=== PATIENT | male | born 1960 | race Caucasian/White ===

== ENCOUNTER 2016-12-12 18:43 | Inpatient (IN) | payer MEDICAID, OTHER ==
[~2016-12-12] VITALS: Ht 167.6 cm; Wt 81.8 kg
[2016-12-13] MEDS ORDERED: Benzocaine-Menthol Lozenge 2/Pkg PO PRN (01:10)
[2016-12-13] MEDS ORDERED: Alum-Mag Hydrox-Simeth 30 mL Suspension PO PRN (01:10)
[2016-12-13] MEDS ORDERED: Magnesium Hydroxide 10 mL Oral Concentration PO PRN (01:10)
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
[2016-12-13] MEDS: LORazepam 2 mg Tablet PO PRN ×2 (11:49→20:09)
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
--- NOTE | 2016-12-13 17:48 | NUR ---
Obs Dayshift Pt spent the morning in bed, got up jut before lunch stating that we better give him a cigarette or he will find a way out of here to get one. Pt declined multiple offers of a patch. Pt was very malodorous, with some strong encouragement by staff he did take a shower, change clothing and went back to bed until dinner. Verbally aggressive, irritable, detests that he is in a "treatment facility". Pt is not able to participate on the unit at this time. Poor ADL's, Good meals
--- NOTE | 2016-12-13 19:05 | NUR ---
Nursing Dayshift: S: "Oh, that's for my thoughts? Okay." O: Patient agreeable to take Ativan 2 mg PO and Zyprexa 10 mg PO during lunch time for increased agitation. Effective relief noted within a half an hour. Patient has been out of his room for meals and snacks. Gruff with staff for the most part. Complementary when receiving requested snacks. Challenging when not getting his way as when staff do not give him focus soon enough. A: Gruff. Some anger. P: CPOC. Monitor mood and behavior.
--- NOTE | 2016-12-14 01:29 | NUR ---
Observations 1900 to 0700 Pt ate a snack. Pt has a blunt, hostile affect. Pt threatens staff when denied demand of cigarette. Pt paces unit. Pt does not interact with peers. Pt appeared asleep from 2330- 0045 and is currently quiet in bed. Pt respirations were observed when asleep. Staff completed 15 min close observations as ordered.
--- NOTE | 2016-12-14 05:46 | NUR ---
Nursing Noc "I need a smoke right now!, you can't hold me here!, I'm getting out of here right now." Pt presents very internally preoccupied, noted to be almost constantly talking to himself and pacing from room to common area. Pt verbally aggressive with staff and noted to stop and stare at auto service writer at times. Difficult to redirect. Taking medications with hesitance. Broken sleep this shift. Continuing to monitor mood, behavior and emotional state. q15 minute safety checks throughout the shift. BHCP. Pt refusing Nicotine replacement options available.
[2016-12-14] MEDS: LORazepam 2 mg Tablet PO PRN ×2 (07:34→15:03)
--- NOTE | 2016-12-14 09:14 | NUR ---
PT AGREED TO TAKE A.M. MEDICATIONS Pt. approached this life insurance underwriter and stated: "I want all my medications but no nicotine, no nicotine!" pt. given his scheduled Olanzapine 10 mg and PRN Ativan 2 mg for anxiety.
[2016-12-14 09:56] VITALS: BP 153/106; PULSE 105; RESP 18
--- NOTE | 2016-12-14 13:36 | PROG NOTE ---
[address] [address] PROGRESS NOTE PATIENT: VERNA PEREZ : 1960 MR#: [id number] ADMIT: 12/13/2016 JOB ID: [id number] DATE: 12/14/2016 CHIEF COMPLAINT: "When can I leave?" This per patient report. HISTORY OF PRESENT ILLNESS: As stated above, the patient was briefly able to meet with myself. He made intermittent eye contact, which was improved. He reportedly remains medication compliant but openly states that he just wants to be let go from the hospital. In court proceeding this morning the patient did meet criteria for continued stay and has been informed of the court order process. OBJECTIVE: On mental status exam the patient met with myself briefly, made intermittent eye contact. He was unable to discern any previous history, unwilling to process any previous interventions provided, but remains medication compliant. His speech is pressured. His mood is less dysphoric. His affect is incongruent. His thought process shows continuation of flight of ideas, loose and disorganized speech, evidence of word salad. His thought content: He denied any evidence of current suicidal, homicidal ideation. He remains posturing, some agitation and aggression, paranoia. He responds to internal stimulus throughout the course of conversation. Insight and judgment are deemed poor. PHYSICAL EXAMINATION: Vital signs of current: Temperature is 36.4, pulse 105, respirations 18, BP 153/106. MEDICATION REVIEW: Includes Zyprexa 10 mg b.i.d. and p.r.n. doses of Vistaril, Zyprexa, and Ativan, as well as trazodone. ASSESSMENT: [place] I: Schizophrenia, paranoid type. [place] II: Deferred. [place] III: None. [place] IV: Stressors are noted for chronic mental health issues, noncompliance. [place] V: Global Assessment of Functioning of current 25. PLAN: 1. Recommendations for titration of Zyprexa to 15 mg b.i.d. 2. Recommendations for continuation of attempts of gathering information from previous [facility] for previous hospitalizations.
[2016-12-14] MEDS ORDERED: Benztropine 1 mg/mL 2 mL Inj IM PRN (14:15)
[2016-12-14] MEDS ORDERED: Haloperidol 5 mg/mL Inj IM PRN (14:25)
--- NOTE | 2016-12-14 15:10 | NUR ---
NURSING NOTE [id number] Mood: "I'm not staying here" Affect: paranoid, irritable at times Behavior: initially refused a.m. meds but half hour later approached this tag writer requesting to take them. Pt. difficult to understand at times as he mostly mutters and rambles, but able to express his needs to staff. Pt quite fixated on wanting discharge. Pt. visible off and on in common area, not interacting w/peers. Thought processes: disorganized, FOI, responding to internal stimuli, not able to answer when asked about AH/VH.
--- NOTE | 2016-12-14 18:15 | NUR ---
Electrolytic Etcher/Counselor: S: "I asked for help and they brought me here." O: Patient slept 6 hours last night per staff. Patient denies S/I and H/I. He also denies auditory and visual hallucinations. Depression and anxiety was not rated. A: Patient is cooperative, disorganized, word salad, paranoid, agitated, responding to internal stimuli, no insight, no judgment. P: Follow the care plan, coordinate with out-patient providers.
--- NOTE | 2016-12-14 18:27 | NUR ---
[facility] Day Shift Pt maintained behavioral control throughout the shift. Pt affect appears mostly flat, briefly tearful in the AM, occasionally irritable. Pt spends most of the shift resting in his room, sitting quietly in his room, and inquiring about his belongings. Pt is occasionally difficult to comprehend during conversations (pt mumbles/slurs frequently). Pt is not social with staff or peers when active on the unit. Pt declined to participate in unit activities. Pt attended all meals and ate approx 100% of all meals.
--- NOTE | 2016-12-14 21:24 | NUR ---
nursing note 3-11pm O)hard to understand mumbles with word salad statements, pleasant took medications without problems, ate meals, isolates in room, dressed in own clothes A) cooperative, takes medications, responds to internal stimuli P) monitor behavior and effectiveness of medications
--- NOTE | 2016-12-15 04:35 | NUR ---
nursing, nights, 11-7 s- can i have something to drink ? no i don't want ativan. i'll take the vistaril. can i have some socks ? o- has appeared to sleep after 2214. up at 0225 and received 50 mg of vistaril. alternates between his room and the dinning room, is currently resting in bed. assessed q 15 minutes. a- inadequate sleep, responding to internal stimuli, no apparent physical distress. p- monitor behavior/emotional state, quality, times and amount of sleep, use and effect of medication. refugio
[2016-12-15] MEDS: LORazepam 2 mg Tablet PO PRN (12:47)
--- NOTE | 2016-12-15 12:48 | NUR ---
PRN medication Pt responding to AVH. He requested and received medication, Haldol 10mg po prn & Ativan 2mg po prn.
--- NOTE | 2016-12-15 14:15 | PROG NOTE ---
[address] [address] PROGRESS NOTE PATIENT: VERNA PEREZ : 1960 MR#: [id number] ADMIT: 12/13/2016 JOB ID: [id number] DATE: 12/15/2016 CHIEF COMPLAINT: "I just want to get out of here." This per patient report. HISTORY OF PRESENT ILLNESS: As stated above, the patient met briefly with myself on the Day Area. He continues to be quite paranoid, delusional, identifying that there are individuals out there that are not making it easy for him to be safe. He showed significant visual tracking throughout and showed some agitation responses with posturing. His speech was pressured. His mood is dysphoric. Affect is irritable. His thought process shows evidence of loose and disorganized thinking. His thought content, he denied any evidence of suicidal or homicidal ideation. He continues to be quite paranoid, delusional. He was alert. Orientation was off in all quadrants. Insight and judgment are poor. PHYSICAL EXAMINATION: All vital signs of current. Temperature is 36.4, pulse 105, respirations 18, BP 153/106. MEDICATION REVIEW: Includes: 1. Zyprexa 15 mg b.i.d. 2. P.r.n. doses of Haldol 10 mg q.4 hours p.r.n., p.o. or IM. 3. Cogentin 1 mg b.i.d. p.o. or IM or EPS. 4. Hydroxyzine 50 mg q.4 hours. 5. Ativan 2 mg q.4 hours p.o. or IM. 6. Trazodone 100 mg q.h.s. ASSESSMENT: AXIS I 1. Psychotic disorder, not otherwise specified. 2. Schizophrenia, paranoid type. 3. Polysubstance use disorder with noted previous usage of methamphetamine and positive UA for THC. AXIS II Antisocial personality disorder. AXIS III None. AXIS IV Stressors are noted for chronic disturbance of mental health, polysubstance use. AXIS V Global assessment of functioning of current 30. PLANS: 1. Recommendations for continuation of all medications noted. 2. Recommendations for continuation of MR 14. 3. Records are currently trying to be obtained through various treatment sectors of prior. [facility]
--- NOTE | 2016-12-15 15:19 | NUR ---
Nursing Days Pt internally preoccupied and actively responding to AVH. He has been visible on the unit. Taking medication as scheduled. Maintained behavioral control.
[2016-12-15 18:54] VITALS: BP 199/87; PULSE 109; RESP 18
--- NOTE | 2016-12-15 19:02 | NUR ---
Student Finance Specialist/Counselor: S: "Whatever you suggest, I will take." O: Patient slept 4.5 hours last night per staff. Patient denies S/I and H/I. He also denies auditory and visual hallucinations. Depression and anxiety was not rated. A: Patient is cooperative, disorganized, word salad, paranoid, responding to internal stimuli, no insight, no judgment. P: Follow the care plan, coordinate with out-patient providers.
--- NOTE | 2016-12-15 21:19 | NUR ---
Evening Nurse Note: Pt has been in the milieu, keeping a low tone of voice and making requests appropriately. Pt dozes off at the table for a short time then went to his room after dinner. Pt came back out to the dayroom for evening snack and was appropriately conversing with staff about his HS meds. Pt thanked staff and went back to bed after medication administration. Pt still responding to internal stimuli. Pt monitored q15 min for safety, location and accountability.
--- NOTE | 2016-12-15 21:20 | NUR ---
Observations 0900 - 0 Pt affect and mood isolative, guarded and withdrawn. Pt was in and out of his room most of the shift. Pt wandered in hallway, sat in [place] and rested in bed during free time. Pt maintained behavior throughout the shift. Pt attended meals in D.R. has a good appetite and ate 100% of his meals. Pt ate snack. Pt was pleasant, polite and cooperative when approached. Pt speech was pressured and rambling. Pt eye contact was ok. Pt was observed every 15 minutes through the shift as ordered.
--- NOTE | 2016-12-16 05:30 | NUR ---
nursing, nights, 11-7 s/o- has appeared to sleep after 5 during q 15 minute assessments. a- improved sleep, no apparent distress. p- monitor behavior/emotional state, quality, times and amount of sleep, use and effect of medication. refugio
[2016-12-16] MEDS: LORazepam 2 mg Tablet PO PRN ×3 (09:19→19:05)
--- NOTE | 2016-12-16 11:39 | NUR ---
NURSING NOTE [id number] Mood: "very, very agitated" Affect: distracted, rambling, irritable at times Behavior: pt. visible in DR, sitting by himself and muttering to himself off and on. Pt. appears disheveled, encouraged pt. to take shower but he declined and said he may take one later today. Thought processes: pt. endorsed anxiety and agitation and requested medication-- was given Ativan 2 mg @ 09:20. Pt. denies all psychiatric issues but does appear to be responding to internal stimulation. He is fixated on wanting discharge today, as well as getting an HIV and TB test done. Addendum: 12/16/16 at 1340 by VILLA LARES RN Pt. requested a copy of his legal paperwork and when he read over it he became agitated and ripped the paper up and threw it in the trash can; stated "I didn't do it, I don't have any felonies, you can't keep me here!" Pt. tearful. Pt. agreeable to take PRN Ativan 2 mg and Haldol 10 mg at that time (13:07). Pt. calmed down w/reassurance and medications.
--- NOTE | 2016-12-16 13:27 | PROG NOTE ---
[address] [address] PROGRESS NOTE PATIENT: VERNA PEREZ : 1960 MR#: [id number] ADMIT: 12/13/2016 JOB ID: [id number] DATE: 12/16/2016 CHIEF COMPLAINT: "I was at [facility] for over six months." This is per patient report. HISTORY OF PRESENT ILLNESS: As stated above, the patient did clarify with myself and medical student that he had been previously hospitalized at the [facility] not [facility]. He otherwise was agitated, irritated by the questions, walked out of the interview process. He has been medication compliant with current dose administration of Zyprexa 15 mg b.i.d. and has been involved in and self-care with taking showers. He reportedly has been eating all meals and has shown no evidence of further aggression. He continues on his current medications without any essential complaints. OBJECTIVE/MENTAL STATUS EXAMINATION: As noted above. The patient did approach myself and the medical student. He initially was pleasant but became quickly irritated and frustrated. He indicated that he did not want to talk about it any more. He did release information about being at [facility] in the past. His mood is dysphoric. His affect is irritable and labile. His thought process showed no evidence of racing thoughts. He does appear to be loose and disorganized and confused throughout the course of conversation. He denied any evidence of suicidal or homicidal ideation. He is quite paranoid. He has evidence of active delusions with feelings of persecution, paranoia and is actively responding to internal stimulus. He was alert and disoriented to place, time, situation. His attention and concentration are poor. Insight and judgment are poor. PHYSICAL EXAMINATION: Vital signs are current. Temperature is 36.5, pulse 109, respirations 18, BP 199/87. MEDICATION REVIEW: Includes: 1. Zyprexa 15 mg b.i.d. 2. Haldol 10 mg q.4 h. p.r.n. for agitation; last dose yesterday at noon. 3. Cogentin 1 mg b.i.d. p.r.n. for EPS. 4. Vistaril 50 mg q.4 h. p.r.n. 5. Ativan 2 mg q.4 h. p.r.n. 6. Trazodone 100 mg q.h.s. ASSESSMENT: AXIS I: 1. Schizophrenia, paranoid type. 2. Polysubstance use disorder by history. AXIS II: Antisocial personality disorder. AXIS III: None. AXIS IV: Stressors are noted for chronic disturbance of mental health, polysubstance use. AXIS V: Global Assessment of Functioning, current, 30. PLAN: 1. Recommendations for obtaining information from [facility] in [place]. 2. Recommendations for continuation of MR 14. 3. Recommendations for further titration of Zyprexa to follow.
[2016-12-16 14:01] VITALS: BP 170/97; PULSE 101; RESP 16
--- NOTE | 2016-12-16 17:49 | NUR ---
[facility] Day Shift Pt maintained behavioral control throughout the shift. Pt affect appears mostly flat, briefly tearful in the AM, occasionally irritable. Pt spends most of the shift resting in his room, sitting quietly in his room, and inquiring about his belongings/discharge. Pt is occasionally difficult to comprehend during conversations (pt mumbles/slurs frequently). Pt is not social with staff or peers when active on the unit. Pt expresses frustration with his inability to leave the unit, but has not required physical intervention at this time. Pt declined to participate in unit activities. Pt attended all meals and ate approx 100% of all meals.
--- NOTE | 2016-12-16 19:06 | NUR ---
Nurses PRN Patient requested medications for agitation,received Ativan 2mg and Haldol 10mg after reporting other patients were plotting against him and that radiation was the colunga. Will assess response. Addendum: 12/16/16 at 2230 by ANTONIA LEE RN Nurses Note [place] Patient maintain behavioral control this shift with the assist of PRN Haldol 10mg and Ativan 2mg PO at 1905. Patient continued to fear other patients with bizarre paranoid thinking. He remains medication compliant without adverse effect. He c/o a "centipede" in his Left ear. Patient has an reddened raised papule on the opening of the ear canal with moderate redness inside the ear. Will maintain q 15min. checks for safety,redirection and support.
--- NOTE | 2016-12-16 19:49 | NUR ---
Chief Wellness Officer/Counselor: S/O: Patient denies S/I and H/I. He also denies auditory and visual hallucinations. Depression and anxiety were not rated. A: Patient is cooperative, disorganized, word salad, paranoid, responding to internal stimuli, no insight, no judgment. P: Follow the care plan, coordinate with out-patient providers.
[2016-12-17] MEDS: LORazepam 2 mg Tablet PO PRN ×3 (01:11→18:00)
--- NOTE | 2016-12-17 05:04 | NUR ---
nursing, nights, 11-7 s- let colt out. she's locked in up in the back. thank you. o- has appeared to sleep after 2200 till 0040. received 2 mg of ativan and 50 mg of vistaril at 0120. has slept on and off since. has a cough and has received a couple of cough drops. assessed q 15 minutes. a- interupted sleep, internally preoccupied, no apparent distress. p- monitor behavior/emotional state, quality, times and amount of sleep, use and effect of medication. refugio
[2016-12-17 10:15] VITALS: BP 131/98; PULSE 90; RESP 18
--- NOTE | 2016-12-17 11:00 | NUR ---
day shift nursing note-Psychosis/Appetite/Socialization/Sleep S/O-"I need something to calm me down." Pt. was up for breakfast. He appeared paranoid when fiction writer gave him his AM meds. He is disheveled in appearance. He has been polite and can be redirected by staff. "I can't see well...I had laser surgery when I was young...it was on [place]." "There are microphones here... we need to see the DNA!" He has been in his room mostly unless he is out on the unit for meals or making requests for meds. At 1043, he requested and was given 2 mg. of Ativan prn PO. 30 min. later he was no longer mumbling to himself and was quiet in his room. Pt.reported he slept well last night. A-Paranoid. Lack of insight or judgment. P-Redirect as needed. Monitor for safety per protocol. Assess efficacy of meds to decrease psychosis. Decrease stimuli as needed.
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
--- NOTE | 2016-12-17 15:13 | NUR ---
Manager Cardiac/Counselor: S/O: Patient denies SI and SI, and no auditory and visual hallucinations. Did not rate depression or anxiety. A: Patient is cooperative, disorganized, word salad, paranoid, responding to internal stimuli, no insight, no judgment. Patient is secluding himself to his room for most of the day except for meals. P: Follow care plan, coordinate with outpatient providers.
[2016-12-17] MEDS ORDERED: .Epic Conversion Completed XX PRN (16:15)
--- NOTE | 2016-12-17 16:39 | NUR ---
Observations 0700 to 1900. Pt ate a snack. Pt has a gruff, flat, blunt affect. Pt keeps mostly to self, resting in bed. Pts speech is slurred and difficult to understand at times. Pt maintained behavioral control and showed no signs of abnormal behavior. Respirations were observed while asleep. Breakfast: 100%. Lunch: 100%. Staff completed 15 min close observations as ordered.
--- NOTE | 2016-12-17 23:00 | NUR ---
Nursing Note 7pm to 11pm Pt had requested Haldol and Ativan at 1800 for anxiety and AH which contributed prior to start of shift. Received pt in bed asleep at start of shift, snoring loudly. MHA attempted to wake pt up for snack and this life underwriter attempted to wake pt for HS meds without success. Pt usually gets up in the middle of the night and will be given his HS medications at that time.
== END 2016-12-18 01:29 | disposition admitted as inpatient to this hospital (09) | DRG 951 ==
LOC: MHC 12-13 01:03
PROVIDERS: ADMIT Psychiatry & Neurology Psychiatry; ATTEND Psychiatry & Neurology Psychiatry
DX: R69 Illness, unspecified (principal)